=== PATIENT | male | born 1970 | race Caucasian/White ===

== ENCOUNTER 2023-02-19 16:43 | Emergency (ER) | payer OTHER, SELFPAY ==
[2023-02-19 16:52] VITALS: PULSE 80; RESP 16; TEMP 37.1; O2SAT 97; BMI 30.5
[2023-02-19 17:01] VITALS: BP 171/110
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
[2023-02-19] MEDS: ONDANSETRON 4 MG ODT SL (17:06)
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
[2023-02-19] MEDS: KETOROLAC 30 MG/ML VIAL IM (17:32)
[2023-02-19 18:01] VITALS: BP 162/97
== END 2023-02-19 18:05 | disposition home or self-care (01) ==
PROVIDERS: Emergency Provider Student in an Organized Health Care Education/Training Program
DX: S16.1XXA Strain of muscle, fascia and tendon at neck level, initial encounter (principal); S13.4XXA Sprain of ligaments of cervical spine, initial encounter; R07.89 Other chest pain; V89.2XXA Person injured in unspecified motor-vehicle accident, traffic, initial encounter
CPT/HCPCS: 71046; 72125; 96372; 99284; J1885

== ENCOUNTER 2023-07-23 06:01 | Emergency (ER) | payer OTHER, SELFPAY ==
[2023-07-23] VITALS (10 sets, daily range): BP systolic 150–184; BP diastolic 82–116; PULSE 60–77; RESP 18; TEMP 36.6; O2SAT 96–99; BMI 29.7
--- NOTE | 2023-07-23 06:11 | ED_ITS ---
HPI - General Adult <Susy Morales MD - Last Filed: 07/24/23 22:03> General Chief complaint: Urogenital-Male Stated complaint: left side flank pain 10 days Time Seen by Provider: 07/23/23 06:07 History of Present Illness HPI narrative: 53-year-old gentleman with no significant medical history currently on no medications presents with 10 days of left upper flank lower posterior rib pain. He does not describe any specific trauma. No rashes, no dysuria. He is having no anterior abdominal pain. He notes that he is lost approximately 15 lb in the last 6 weeks without any effort and with normal volumes food. He is not complaining of any night sweats, cough, fevers, abdominal pain, change to stools. He has been using Alleve and ibuprofen but with symptoms not changing after 10 days he is coming in for further evaluation. He does not report headaches, palpitations or specific chest pain. Related Data Previous Rx's Medication Instructions Recorded baclofen 20 mg tablet 20 mg PO TID PRN muscle spasm #15 02/19/23 tabs ondansetron 4 mg disintegrating 4 mg PO Q8H PRN nausea and 02/19/23 tablet vomiting #12 tabs doxycycline hyclate 100 mg capsule 100 mg PO BID #20 caps 07/23/23 hydrocodone 5 mg-acetaminophen 325 1 tab PO Q6H PRN pain #10 tabs 07/23/23 mg tablet lidocaine 5 % topical patch 1 patch topical DAILY PRN pain #30 07/23/23 ea meloxicam 15 mg tablet 15 mg PO DAILY PRN pain #20 tabs 07/23/23 Allergies Allergy/AdvReac Type Severity Reaction Status Date / Time Sulfa (Sulfonamide Allergy Unknown Verified 02/19/23 16:58 Antibiotics) Review of Systems <Susy Morales MD - Last Filed: 07/24/23 22:03> Review of Systems Narrative: Pertinent positive and negative findings as per HPI Patient History <Susy Morales MD - Last Filed: 07/24/23 22:03> Social History Smoking Status: Former smoker Smoking Status: Former smoker alcohol intake frequency: holidays/special occasions only Substance Use Type: does not use Exam <Susy Morales MD - Last Filed: 07/24/23 22:03> Initial Vital Signs Initial Vital Signs: Vital Signs Temperature 98 F 07/23/23 06:13 Pulse Rate 69 07/23/23 06:13 Respiratory Rate 18 07/23/23 06:13 Blood Pressure 175/104 H 07/23/23 06:13 Pulse Oximetry 99 07/23/23 06:13 Oxygen Delivery Method Room Air 07/23/23 06:13 General: Healthy appearing, in no acute distress. Able to give a complete and coherent history. Well-nourished well-developed HEENT: Moist mucous membranes, normal sclera with reactive pupils, Neck: No JVD, supple Respiratory: Lungs are clear to auscultation, no wheezing no rales no rhonchi. Full and symmetrical air movement Cardiac: Regular rate and rhythm no murmurs no bruits Abdomen: Soft, nontender, good bowel tones, Chest: He does not have any bony tenderness along the thoracic or upper lumbar spine. He does have some tenderness to posterior ribs 11 and 12 on the left side without any obvious palpable abnormalities with the pain including the upper flank but not specifically renal pain. There are no skin changes in the associated area Skin: Warm and dry, no rashes Neurologic: Grossly neurologically intact with no obvious asymmetries or abnormalities Extremities: No trauma, well perfused Psych: Cooperative, appropriate insight and affect <Esthela Lorenzo DO - Last Filed: 07/23/23 13:36> Initial Vital Signs Initial Vital Signs: Vital Signs Temperature 98 F 07/23/23 06:13 Pulse Rate 69 07/23/23 06:13 Respiratory Rate 18 07/23/23 06:13 Blood Pressure 175/104 H 07/23/23 06:13 Pulse Oximetry 99 07/23/23 06:13 Oxygen Delivery Method Room Air 07/23/23 06:13 Course <Susy Morales MD - Last Filed: 07/24/23 22:03> Orders Ordered: Discontinued Medications Ketorolac Tromethamine (Ketorolac 30 Mg/Ml Vial) 15 mg IV NOW ONE Stop: 07/23/23 08:20 Last Admin: 07/23/23 08:23 Dose: 15 mg Documented By: GEORGE Ondansetron HCl (Ondansetron 4 Mg/2 Ml Inj) 4 mg IV NOW ONE Stop: 07/23/23 08:20 Last Admin: 07/23/23 08:22 Dose: 4 mg Documented By: GEORGE Vital Signs Vital signs: Vital Signs - 8 hr 07/23/23 06:13 07/23/23 06:41 07/23/23 06:43 Temperature 98 F Pulse Rate 69 65 63 Respiratory Rate 18 Blood Pressure 175/104 H Pulse Oximetry 99 99 97 Oxygen Delivery Method Room Air 07/23/23 06:43 07/23/23 07:00 07/23/23 07:00 Temperature Pulse Rate 61 Respiratory Rate Blood Pressure 161/101 H 150/93 H Pulse Oximetry 96 Oxygen Delivery Method 07/23/23 07:35 07/23/23 07:36 07/23/23 07:36 Temperature Pulse Rate 77 60 Respiratory Rate Blood Pressure 184/116 H Pulse Oximetry 98 98 Oxygen Delivery Method 07/23/23 07:46 07/23/23 07:46 07/23/23 08:00 Temperature Pulse Rate 63 Respiratory Rate Blood Pressure 171/82 H 163/91 H Pulse Oximetry 97 Oxygen Delivery Method 07/23/23 08:00 07/23/23 10:00 07/23/23 10:01 Temperature Pulse Rate 60 66 Respiratory Rate Blood Pressure 180/103 H Pulse Oximetry 97 97 Oxygen Delivery Method 07/23/23 10:01 Temperature Pulse Rate 62 Respiratory Rate Blood Pressure Pulse Oximetry 98 Oxygen Delivery Method <Esthela Lorenzo DO - Last Filed: 07/23/23 13:36> Orders Ordered: Discontinued Medications Ketorolac Tromethamine (Ketorolac 30 Mg/Ml Vial) 15 mg IV NOW ONE Stop: 07/23/23 08:20 Last Admin: 07/23/23 08:23 Dose: 15 mg Documented By: GEORGE Ondansetron HCl (Ondansetron 4 Mg/2 Ml Inj) 4 mg IV NOW ONE Stop: 07/23/23 08:20 Last Admin: 07/23/23 08:22 Dose: 4 mg Documented By: GEORGE Vital Signs Vital signs: Vital Signs - 8 hr 07/23/23 06:13 07/23/23 06:41 07/23/23 06:43 Temperature 98 F Pulse Rate 69 65 63 Respiratory Rate 18 Blood Pressure 175/104 H Pulse Oximetry 99 99 97 Oxygen Delivery Method Room Air 07/23/23 06:43 07/23/23 07:00 07/23/23 07:00 Temperature Pulse Rate 61 Respiratory Rate Blood Pressure 161/101 H 150/93 H Pulse Oximetry 96 Oxygen Delivery Method 07/23/23 07:35 07/23/23 07:36 07/23/23 07:36 Temperature Pulse Rate 77 60 Respiratory Rate Blood Pressure 184/116 H Pulse Oximetry 98 98 Oxygen Delivery Method 07/23/23 07:46 07/23/23 07:46 07/23/23 08:00 Temperature Pulse Rate 63 Respiratory Rate Blood Pressure 171/82 H 163/91 H Pulse Oximetry 97 Oxygen Delivery Method 07/23/23 08:00 07/23/23 10:00 07/23/23 10:01 Temperature Pulse Rate 60 66 Respiratory Rate Blood Pressure 180/103 H Pulse Oximetry 97 97 Oxygen Delivery Method 07/23/23 10:01 Temperature Pulse Rate 62 Respiratory Rate Blood Pressure Pulse Oximetry 98 Oxygen Delivery Method Medical Decision Making <Susy Morales MD - Last Filed: 07/24/23 22:03> Lab Data 07/23/23 06:30 07/23/23 06:30 Labs: Lab Results 07/23/23 Range/Units 06:30 WBC 7.4 (4.5-11.0) X10^3/uL RBC 5.21 (4.5-5.9) X10^6/uL Hgb 15.8 (13.5-17.5) g/dL Hct 46.7 (41-53) % MCV 89.6 (80-100) fL MCH 30.4 (26-34) PG MCHC 33.9 (30-36) % RDW 14.8 (11.6-14.8) % Plt Count 202 (150-400) X10^3/uL Neut % (Auto) 59.8 (50-75) % Lymph % (Auto) 27.9 (25-40) % [place] % (Auto) 8.6 (3-14) % Eos % (Auto) 2.9 (2-4) % Baso % (Auto) 0.8 (0-2) % Neut # (Auto) 4500 (8392-5385) /uL Lymph # (Auto) 2100 (8393-1021) /uL [place] # (Auto) 600 (0-900) /uL Eos # (Auto) 200 (0-450) /uL Baso # (Auto) 100 (0-100) /uL Sodium 135 L (137-145) mmol/L Potassium 4.2 (3.4-5.1) mmol/L Chloride 100 (98-107) mmol/L Carbon Dioxide 28 (22-32) mmol/L BUN 29 H (9-20) mg/dL Creatinine 0.78 (0.66-1.25) mg/dL Estimated GFR > 60 (>60) mL/min BUN/Creatinine Ratio 37.2 H (6-22) Glucose 119 H (70-100) mg/dL Calcium 9.3 (8.4-10.2) mg/dL Total Bilirubin 0.8 (0.2-1.3) mg/dL AST TNP ALT 43 (<50) IU/L Alkaline Phosphatase 43 (38-126) U/L Total Creatine Kinase 208 H (55-170) U/L Troponin I < 0.012 (0.01-0.034) ng/mL Total Protein 7.2 (6.3-8.2) g/dL Albumin 4.3 (3.5-5.0) g/dL Globulin 2.9 (1.7-4.1) g/dL Albumin/Globulin Ratio 1.5 (1.0-2.8) Lipase 46 (23-300) U/L TSH 2.20 (0.47-4.68) uIU/mL Urine Dip Bedside Urine Glucose Negative Bedside Urine Bilirubin - Negative Bedside Urine Ketone - Negative Urine Specific [place] 1.020 Bedside Urine Occult Blood - Negative Bedside Urine pH 6.0 Bedside Urine Protein - Negative Bedside Urine Urobilinogen - Negative Bedside Urine Nitrite - Negative Bedside Urine Leukocytes - Negative Esterase Point of care testing: Urine Dip Bedside Urine Glucose Negative Bedside Urine Bilirubin - Negative Bedside Urine Ketone - Negative Urine Specific [place] 1.020 Bedside Urine Occult Blood - Negative Bedside Urine pH 6.0 Bedside Urine Protein - Negative Bedside Urine Urobilinogen - Negative Bedside Urine Nitrite - Negative Bedside Urine Leukocytes - Negative Esterase MDM Narrative Medical decision making narrative: CC: Left posterior lower rib/flank pain for 10 days with 15 lb associated weight loss Complicating co-morbidities: None Data collected from: patient Differential considered: Rib fracture, rib contusion or strain, retroperitoneal mass, compression fracture, left renal abnormality, pancreatic abnormality Exam documented above, pertinent findings include: Otherwise healthy 53-year-old gentleman reproducible tenderness left upper flank lower ribs no anterior abdominal tenderness. No spine tenderness. Lab Test results independently reviewed as above. Pertinent findings: Urine dip is entirely unremarkable Independently reviewed EKG: Imaging studies independently reviewed: Consultations: Treatments: Re-evaluations: Discussion: <Esthela DO Maura - Last Filed: 07/23/23 13:36> Lab Data Labs: Lab Results 07/23/23 Range/Units 06:30 WBC 7.4 (4.5-11.0) X10^3/uL RBC 5.21 (4.5-5.9) X10^6/uL Hgb 15.8 (13.5-17.5) g/dL Hct 46.7 (41-53) % MCV 89.6 (80-100) fL MCH 30.4 (26-34) PG MCHC 33.9 (30-36) % RDW 14.8 (11.6-14.8) % Plt Count 202 (150-400) X10^3/uL Neut % (Auto) 59.8 (50-75) % Lymph % (Auto) 27.9 (25-40) % [place] % (Auto) 8.6 (3-14) % Eos % (Auto) 2.9 (2-4) % Baso % (Auto) 0.8 (0-2) % Neut # (Auto) 4500 (0314-5051) /uL Lymph # (Auto) 2100 (1056-0579) /uL [place] # (Auto) 600 (0-900) /uL Eos # (Auto) 200 (0-450) /uL Baso # (Auto) 100 (0-100) /uL Sodium 135 L (137-145) mmol/L Potassium 4.2 (3.4-5.1) mmol/L Chloride 100 (98-107) mmol/L Carbon Dioxide 28 (22-32) mmol/L BUN 29 H (9-20) mg/dL Creatinine 0.78 (0.66-1.25) mg/dL Estimated GFR > 60 (>60) mL/min BUN/Creatinine Ratio 37.2 H (6-22) Glucose 119 H (70-100) mg/dL Calcium 9.3 (8.4-10.2) mg/dL Total Bilirubin 0.8 (0.2-1.3) mg/dL AST TNP ALT 43 (<50) IU/L Alkaline Phosphatase 43 (38-126) U/L Total Creatine Kinase 208 H (55-170) U/L Troponin I < 0.012 (0.01-0.034) ng/mL Total Protein 7.2 (6.3-8.2) g/dL Albumin 4.3 (3.5-5.0) g/dL Globulin 2.9 (1.7-4.1) g/dL Albumin/Globulin Ratio 1.5 (1.0-2.8) Lipase 46 (23-300) U/L TSH 2.20 (0.47-4.68) uIU/mL Urine Dip Bedside Urine Glucose Negative Bedside Urine Bilirubin - Negative Bedside Urine Ketone - Negative Urine Specific [place] 1.020 Bedside Urine Occult Blood - Negative Bedside Urine pH 6.0 Bedside Urine Protein - Negative Bedside Urine Urobilinogen - Negative Bedside Urine Nitrite - Negative Bedside Urine Leukocytes - Negative Esterase Point of care testing: Urine Dip Bedside Urine Glucose Negative Bedside Urine Bilirubin - Negative Bedside Urine Ketone - Negative Urine Specific [place] 1.020 Bedside Urine Occult Blood - Negative Bedside Urine pH 6.0 Bedside Urine Protein - Negative Bedside Urine Urobilinogen - Negative Bedside Urine Nitrite - Negative Bedside Urine Leukocytes - Negative Esterase Imaging Data CT scan - abdomen/pelvis: Radiologist's Impression: PROCEDURE: CT ABDOMEN PELVIS W CON INDICATIONS: Left upper flank/lower rib pain with 15lb weight loss TECHNIQUE: After the administration of intravenous contrast, axial sections acquired from the lung bases to the pubic symphysis. Coronal and sagittal reformats were performed. For radiation dose reduction, the following was used: automated exposure control, adjustment of mA and/or kV according to patient size. COMPARISON: None. FINDINGS: Image quality: Diagnostic. Lower Chest: No significant findings. ABDOMEN: Liver: Normal size. Mild hepatic steatosis. No solid mass. Gallbladder: No radiopaque gallstones or wall thickening. Biliary ducts: No biliary dilation. Pancreas: No ductal dilation. Spleen: Size is within normal limits. Adrenal Glands: No adrenal nodules. Kidneys and Ureters: No hydronephrosis. No solid mass. No complex renal cystic lesion which requires follow up. Stomach and Bowel: Normal small bowel colonic caliber, without significant wall thickening. There is a large amount of stool in colon. Peritoneum: No abnormal intraperitoneal fluid. No free air. Ventral Wall: No hernia. Abdominal Nodes: No retroperitoneal or mesenteric adenopathy by size criteria. Vessels: Aorta and inferior vena cava are normal in size. PELVIS: Pelvic Organs: Prostate is enlarged. Bladder: Bladder wall may be mildly thickened but bladder is not fully distended. Pelvic Nodes: No enlarged lymph nodes. Miscellaneous: No inguinal hernias are seen. Bones: No aggressive osseous abnormality. Several small sclerotic lesions are seen involving the right iliac bone, the left acetabulum in the left femoral head, most likely caused by a bone island. IMPRESSION: 1. Question mild bladder wall thickening. Since bladder is not fully distended, the appearance could be caused by artifact. Please correlate with urinalysis. 2. Mild hepatic steatosis. 3. A large amount of stool in colon. Dictated by: Juan Pablo Montanez M.D. on 07/23/2023 at 8:24 Chest x-ray: Radiologist's Impression: PROCEDURE: XR CHEST 2V INDICATIONS: cardiac work up TECHNIQUE: 2 views of the chest were acquired. COMPARISON: None. FINDINGS: Surgical changes and devices: None. Lungs and pleura: Minimal bibasilar patchy atelectasis. No pleural effusions or pneumothorax. Mediastinum: Mediastinal contours are normal. Heart size is normal. Bones and chest wall: No suspicious bony abnormalities. Soft tissues appear unremarkable. IMPRESSION: Minimal patchy bibasilar atelectasis. Dictated by: Ibrahima Kaba M.D. on 07/23/2023 at 9:41 ECG Data Interpretation: Normal sinus rhythm rate 50 TX interval 152 QRS [address] changes T-wave inversion noted in lead 3 only no priors to compare MDM Narrative Medical decision making narrative: CC: Left posterior lower rib/flank pain for 10 days with 15 lb associated weight loss Complicating co-morbidities: None Data collected from: patient Differential considered: Rib fracture, rib contusion or strain, retroperitoneal mass, compression fracture, left renal abnormality, pancreatic abnormality Exam documented above, pertinent findings include: Otherwise healthy 53-year-old gentleman reproducible tenderness left upper flank lower ribs no anterior abdominal tenderness. No spine tenderness. Lab Test results independently reviewed as above. Pertinent findings: WBCs 7.9 no anemia no GLENYS Urine dip is entirely unremarkable Independently reviewed EKG: Imaging studies independently reviewed:CT and Chest x ray. Consultations: none Treatments: Re-evaluations: Discussion: Dr. Lorenzo-patient seen evaluated by myself signed out by Dr. Lindsay. He is having left upper thoracic rib like pain. It has been there for about couple of weeks hurts every time he breathes and moves. He has been taking Aleve daily which has helped in if he misses a dose pain is out of control. No real abdominal pain not radiating to his groin. No significant shortness of breath he has not had any recent travel. He has been using ice and heat as well without any relief. He does not remember any sort of injury would have caused this. No nausea or vomiting. On exam pain is definitely reproducible to palpation in his left ribs around [address] CT scan reviewed large amount of stool some thickened bladder without evidence of UTI, no other etiology to explain pain Patient's symptoms really seem musculoskeletal like a costochondritis. Symptoms are definitely improved with anti-inflammatories as well also consistent with a costochondritis. He reports that previously he has had an ablation for an AV node dysfunction. He has not really having chest pain or shortness of breath. Chest x-ray does show bilateral atelectasis he does not really report cough fever or body aches to suggest a pneumonia. He has no leukocytosis. We did discuss possible antibiotics if he keeps getting worse. Pain is really reproducible on the left side I suspect costochondritis. EKG and troponin are negative. At this time supportive care only with pain medication Discharge Plan Departure Patient Disposition: Home Clinical Impression: Acute costochondritis Instructions: Costochondritis Activity Restrictions/Additional Instructions: *You have been diagnosed with costochondritis *What to do: At this time I do think you have costochondritis. CT was negative blood work is overall reassuring. X-ray does so show some very mild patchy atelectasis. Super concerning for pneumonia you do not really have symptoms. But will write you prescription for antibiotic in case her symptoms worsen. *Continue to take medications as directed Lidocaine patch for 12 hours at a time then removed [place] 1 tablet every 6 hours if needed for severe pain or at night to sleep Meloxicam 15 mg once daily do not combine with other NSAIDs Doxycycline 100 mg twice a day for 7 days *Follow up with your primary care provider in 2-3 days or call [phone] *Return to ER if you should have increasing pain shortness of breath fever or any new, worsening or concerning symptoms CONTROLLED SUBSTANCE DISCHARGE (Narcotoic/benzodiazepine/Flexeril/Phenergan) 1. You have been prescribed narcotic medications, it does have acetaminophen/Tylenol/paracetamol in it, DO NOT TAKE MORE THAN 4,00mg in 24 hours of Tylenol. TRAMADOL DOES NOT CONTAIN TYLENOL 2. Please understand that we cannot provide further refills of narcotics, benzodiazepines or controlled substances through the ED and her pain management will need to be through your provider. 3. While on these medications you cannot drive or operate heavy machinery. 4. You cannot sign legal documents or perform any duties such as this. 5. As long as you're taking opiate pain medications he should also be taking a stool softener such as Colace, Dulcolax, MiraLAX or prune juice, to help avoid constipation. Prescriptions: New doxycycline hyclate 100 mg capsule 100 mg PO BID Qty: 20 0RF hydrocodone-acetaminophen 5-325 mg tablet 1 tab PO Q6H PRN (Reason: pain) Qty: 10 0RF lidocaine 5 % adhesive patch,medicated 1 patch topical DAILY PRN (Reason: pain) Qty: 30 0RF Rx Instructions: leave on most painful area for up to 12 hrs meloxicam 15 mg tablet 15 mg PO DAILY PRN (Reason: pain) Qty: 20 0RF No Action baclofen 20 mg tablet 20 mg PO TID PRN (Reason: muscle spasm) Qty: 15 0RF ondansetron 4 mg tablet,disintegrating 4 mg PO Q8H PRN (Reason: nausea and vomiting) Qty: 12 0RF Referrals: Mikaela Peck MD [Primary Care Provider] - Stand Alone Forms: Patient Portal/API
--- NOTE | 2023-07-23 06:20 | DI.CT.S_ITS ---
PROCEDURE: CT ABDOMEN PELVIS W CON INDICATIONS: Left upper flank/lower rib pain with 15lb weight loss TECHNIQUE: After the administration of intravenous contrast, axial sections acquired from the lung bases to the pubic symphysis. Coronal and sagittal reformats were performed. For radiation dose reduction, the following was used: automated exposure control, adjustment of mA and/or kV according to patient size. COMPARISON: None. FINDINGS: Image quality: Diagnostic. Lower Chest: No significant findings. ABDOMEN: Liver: Normal size. Mild hepatic steatosis. No solid mass. Gallbladder: No radiopaque gallstones or wall thickening. Biliary ducts: No biliary dilation. Pancreas: No ductal dilation. Spleen: Size is within normal limits. Adrenal Glands: No adrenal nodules. Kidneys and Ureters: No hydronephrosis. No solid mass. No complex renal cystic lesion which requires follow up. Stomach and Bowel: Normal small bowel colonic caliber, without significant wall thickening. There is a large amount of stool in colon. Peritoneum: No abnormal intraperitoneal fluid. No free air. Ventral Wall: No hernia. Abdominal Nodes: No retroperitoneal or mesenteric adenopathy by size criteria. Vessels: Aorta and inferior vena cava are normal in size. PELVIS: Pelvic Organs: Prostate is enlarged. Bladder: Bladder wall may be mildly thickened but bladder is not fully distended. Pelvic Nodes: No enlarged lymph nodes. Miscellaneous: No inguinal hernias are seen. Bones: No aggressive osseous abnormality. Several small sclerotic lesions are seen involving the right iliac bone, the left acetabulum in the left femoral head, most likely caused by a bone island. IMPRESSION: 1. Question mild bladder wall thickening. Since bladder is not fully distended, the appearance could be caused by artifact. Please correlate with urinalysis. 2. Mild hepatic steatosis. 3. A large amount of stool in colon. Dictated by: Juan Pablo Montanez M.D. on 07/23/2023 at 8:24 Approved by: Juan Pablo Montanez M.D. on 07/23/2023 at 8:31
[2023-07-23 06:41] LABS: Add Manual Diff / Slide Review NO; Basophils Absolute Auto 100 /uL (0-100); Basophils Percent Auto 0.8 % (0-2); Eosinophils Absolute Auto 200 /uL (0-450); Eosinophils Percent Auto 2.9 % (2-4); Hematocrit 46.7 % (41-53); Hemoglobin 15.8 g/dL (13.5-17.5); Lymphocytes Absolute Auto 2100 /uL (1100-4500); Lymphocytes Percent Auto 27.9 % (25-40); Mean Corpuscular HGB Conc 33.9 % (30-36); Mean Corpuscular Hemoglobin 30.4 PG (26-34); Mean Corpuscular Volume 89.6 fL (80-100); Monocytes Absolute Auto 600 /uL (0-900); Monocytes Percent Auto 8.6 % (3-14); Neutrophils Absolute Auto 4500 /uL (1500-7000); Neutrophils Percent Auto 59.8 % (50-75); Platelet Count 202 X10^3/uL (150-400); Red Blood Cell Count 5.21 X10^6/uL (4.5-5.9); Red Cell Distribution Width 14.8 % (11.6-14.8); White Blood Cell Count 7.4 X10^3/uL (4.5-11.0)
[2023-07-23 06:53] LABS: Alanine Aminotransferase 43 IU/L (<50); Albumin 4.3 g/dL (3.5-5.0); Albumin Globulin Ratio 1.5 (1.0-2.8); Alkaline Phosphatase 43 U/L (38-126); BUN Creatinine Ratio 37.2 (6-22); Bilirubin Total 0.8 mg/dL (0.2-1.3); Blood Urea Nitrogen 29 mg/dL (9-20); Calcium 9.3 mg/dL (8.4-10.2); Carbon Dioxide 28 mmol/L (22-32); Chloride 100 mmol/L (98-107); Estimated Glomerular Filt Rate > 60 mL/min (>60); Globulin 2.9 g/dL (1.7-4.1); Glucose 119 mg/dL (70-100); Lipase 46 U/L (23-300); Potassium 4.2 mmol/L (3.4-5.1); Sodium 135 mmol/L (137-145); Total Protein 7.2 g/dL (6.3-8.2)
[2023-07-23] MEDS: ONDANSETRON 4 MG/2 ML INJ IV (08:22)
[2023-07-23] MEDS: KETOROLAC 30 MG/ML VIAL 15 MG IV (08:23)
--- NOTE | 2023-07-23 09:23 | DI.RAD.S_ITS ---
PROCEDURE: XR CHEST 2V INDICATIONS: cardiac work up TECHNIQUE: 2 views of the chest were acquired. COMPARISON: None. FINDINGS: Surgical changes and devices: None. Lungs and pleura: Minimal bibasilar patchy atelectasis. No pleural effusions or pneumothorax. Mediastinum: Mediastinal contours are normal. Heart size is normal. Bones and chest wall: No suspicious bony abnormalities. Soft tissues appear unremarkable. IMPRESSION: Minimal patchy bibasilar atelectasis. Dictated by: Ibrahima Kaba M.D. on 07/23/2023 at 9:41 Approved by: Ibrahima Kaba M.D. on 07/23/2023 at 9:41
[2023-07-23 09:31] LABS: Creatine Kinase 208 U/L (55-170)
[2023-07-23 09:44] LABS: Troponin I < 0.012 ng/mL (0.01-0.034)
[2023-07-26 14:46] LABS: HEMOLYSIS 30 (0-50)
[2023-07-26 14:47] LABS: Aspartate Aminotransferase 40 IU/L (17-59)
== END 2023-07-23 10:19 | disposition home or self-care (01) ==
PROVIDERS: Emergency Medicine; Emergency Provider Emergency Medicine; PCP Internal Medicine Geriatric Medicine
DX: M94.0 Chondrocostal junction syndrome [Tietze] (principal); R03.0 Elevated blood-pressure reading, without diagnosis of hypertension
CPT/HCPCS: 36415; 71046; 74177; 80053; 81003; 82550; 83690; 84443; 84484; 85025; 93005; 96374; 96375; 99284; J1885; J2405; Q9967

== ENCOUNTER 2024-09-20 06:04 | Emergency (ER) | payer OTHER, SELFPAY ==
[2024-09-20] VITALS (11 sets, daily range): BP systolic 116–160; BP diastolic 65–97; PULSE 54–73; RESP 16; TEMP 36.7; O2SAT 93–99; BMI 29.0
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
[2024-09-20] MEDS: SODIUM CHLORIDE 0.9% 1,000 ML 1000 ML IV (06:20)
[2024-09-20] MEDS: diphenhydrAMINE 50 MG/ML VIAL 25 MG IV (06:21)
[2024-09-20] MEDS: DEXAMETHASONE 10 MG/ML VIAL IV (06:22)
[2024-09-20] MEDS: METOCLOPRAMIDE 10 MG/2 ML INJ IV (06:22)
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
== END 2024-09-20 09:25 | disposition home or self-care (01) ==
PROVIDERS: Emergency Provider Emergency Medicine; PCP Internal Medicine Geriatric Medicine
DX: R51.9 Headache, unspecified (principal); R11.2 Nausea with vomiting, unspecified; R29.700 NIHSS score 0
CPT/HCPCS: 70450; 96361; 96374; 96375; 99283; 99284; J1100; J1200; J2765